=== PATIENT | female | born 1940 | race Caucasian/White ===

== ENCOUNTER 2024-03-19 05:56 | Day surgery (SDC) | payer OTHER, SELFPAY ==
[2024-02-25 08:07] VITALS: BMI 28.8
[2024-02-25 08:54] LABS: INR 1.25; PT 15.5 Sec (11.4-14.6)
[2024-02-25 08:59] LABS: % Basophils 0.7 % (0-2); % Immature Granulocytes 1.5 % (0-0.5); % Lymphocytes 24.2 % (20.5-51.1); % Monocytes 7.8 % (1.7-9.3); % Neutrophils 63.8 % (42.2-75.2); Absolute Basophils 0.1 10^3/uL (0-0.2); Absolute Eosinophils 0.1 10^3/uL (0-0.7); Absolute Immature Granulocytes 0.1 10^3/uL (0-0.05); Absolute Lymphocytes 1.7 10^3/uL (1.2-3.4); Absolute Monocytes 0.6 10^3/uL (0.1-0.6); Absolute Neutrophils 4.6 10^3/uL (1.4-6.5); Hematocrit 38.1 % (37.0-47.0); Hemoglobin 12.8 g/dL (12.0-16.0); Mean Corp Hgb Conc. 33.6 g/dL (33.0-37.0); Mean Corpuscular Hgb 31.8 pg (27.0-31.0); Mean Corpuscular Volume 94.5 fL (81.0-99.0); Mean Platelet Volume 10.5 fL (7.4-10.4); Nucleated Red Blood Cells % 0 %; Platelet Count 244 10^3/uL (130-400); Red Blood Cell Count 4.03 10^6/uL (4.20-5.40); Red Cell Dist. Width 13.3 % (11.5-14.5); White Blood Cell Count 7.2 10^3/uL (4.8-10.8)
[2024-02-25 09:01] LABS: ALT (SGPT) 12 U/L (0-35); AST (SGOT) 25 U/L (14-36); Albumin 3.9 g/dl (3.5-5.0); Alkaline Phosphatase 92 U/L (38-126); Blood Urea Nitrogen 26 mg/dl (7-17); Calcium 9.3 mg/dl (8.4-10.2); Carbon Dioxide 25 mmol/L (22-30); Chloride 106 mmol/L (98-107); Estimated Creatinine Clearance 41 ml/min; Glucose 76 mg/dl (70-99); Magnesium 1.8 mg/dl (1.6-2.3); Potassium 3.8 mmol/L (3.5-5.1); Sodium 138 mmol/L (135-145); Total Bilirubin 0.4 mg/dl (0.2-1.3); Total Protein 6.5 g/dl (6.3-8.2)
[2024-03-19] VITALS (17 sets, daily range): BP systolic 99–154; BP diastolic 53–101; BMI 29.7
--- NOTE | 2024-03-19 08:12 | ITS.CL.ABL ---
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
Ablation
Procedure Report:
ELECTROPHYSIOLOGIC STUDY AND POSSIBLE ABLATION
DATE: 03/19/24
Primary Care Provider: Dr Alexis Rao
Primary Life Consultant: Dr Soy Quezada
INDICATION:
Symptomatic Atrial Fibrillation.
Paroxysmal
HISTORY: See H and P.
Symptomatic AF, poorly controlled with attempted medical therapy
She is referred for electrophysiologic consultation from Dr. Soy Quezada regarding symptomatic paroxysmal atrial fibrillation.
Echocardiogram June 2023 with normal LVEF but moderate biatrial enlargement including left atrial size of 6.1 cm with moderate tricuspid regurgitation and mild pulmonary hypertension (Study obtained while in atrial fibrillation).
She describes highly symptomatic episodes of atrial fibrillation with heart racing sensation as well as shortness of breath.
She also describes that attempts at rate control with metoprolol has resulted in significant fatigue.
HAS-BLED: 1
Age
CHADSVASc: 3
HFpEF, NYHA class 2
Age
F Gender
AF
HISTORY: See H and P.
Symptomatic AF, poorly controlled with attempted medical therapy.
ANTICOAGULATION: Eliquis
'TIME-OUT': called and confirmed.
SEDATION/ANESTHESIA: provided via the anesthesia department using general anesthesia.
PROCEDURE:
Ultrasound Guidance performed by ca was utilized for femoral venous Vascular Access b/l.
A decapolar CS catheter was placed within the CS for mapping and pacing.
The intracardiac ultrasound catheter was positioned in the RA for continuous intracardiac ultrasound imaging.
Heparin bolus and infusion to target ACT at 300 -350 seconds was administered. Transseptal puncture was performed. This entailed advancing a sheath with dilator into the superior vena cava and withdrawing both (monitoring intracardiac ultrasound,
fluoroscopy and tip pressure) with the tip oriented toward the atrial septum. The fossa ovalis was engaged (indicated by sudden displacement of the sheath tip as well as tenting of the fossa seen on intracardiac ultrasound).
[employer] transseptal system was used. Left atrial catheter position was confirmed by echocardiographic imaging, pressure monitoring (LA mean pressure 12 mm Hg) and fluoroscopy. The sheath was advanced over the dilator and positioned in the left
atrium.
The multipolar mapping catheter was initially positioned through the transseptal sheath for high density mapping.
Geometry and voltage mapping was performed using the [email or web address] multipolar grid catheter. Navex was utilized for three-dimensional electroanatomical mapping.
A 3-D map was created using Navex. A 3-D reconstructed CT image was compared to the 3-D Navex map to assist in anatomic evaluation, mapping and ablation.
The [email or web address] Pulse Select PFA catheter and system was used for cardiac ablation. Catheter positioning was guided and confirmed using both I.C.E. and fluoroscopy.
PV isolation approach was used to electrically isolate each PV ostia (LSPV, LIPV, RSPV, RIPV). Additional energy applications/additional ablation set was required to accomplish wide area circumferential ablation around each of the pulmonary vein
sets and additionally ablation to accomplish LA posterior wall ablation.
Remapping with the Berman multipolar grid catheter found that all PVPs were eliminated at each vein demonstrating entrance block. Also pacing from the multipolar mapping catheter around the the circumference of the ostia was performed at 10 ma and
2.0 msec output to assess for exit block. This demonstrated electrical isolation at each of the pulmonary vein ostia (LSPV, LIPV, RSPV, RIPV). There is also entrance and exit block at the LA posterior wall.
Programmed electrostimulation failed to induce any sustained arrhythmias.
I.C.E. :
Pre-Ablation Post-Ablation
LVEF: 55 % 55 %
WMA: none none
Pericardial effusion: none none
COMPLICATIONS:
None
SUMMARY:
- Mapping and ablation to isolate the PVs
- Additional AF ablation set after PVI.
- 3-D Electroanatomical Mapping
- Intracardiac Ultrasound
Post ablation, I discussed today's findings and results with the patient's .
RECOMMENDATIONS:
- Observe in monitored bed.
- Maintain oral anticoagulation.
- Continue Toprol
- Continue cardiovascular care with Dr Soy Quezada
Copy to:
Dr Alexis Rao
Dr Soy Quezada
[2024-03-19 09:06] LABS: ACT-LR - POC 274 Seconds (116-155)
[2024-03-19 09:27] LABS: ACT-LR - POC 279 Seconds (116-155)
[2024-03-19 09:47] LABS: ACT-LR - POC 385 Seconds (116-155)
[2024-03-19] MEDS: ANESTHETIC LOZENGE 1 LOZENGE PO (10:43)
--- NOTE | 2024-03-19 14:44 | CM ---
Addendum entered by Aleshia Barnes RN 03/20/24 12:16:
Patient interested in PT. Referral sent to [facility]. Patient being discharged home with [facility]
Original Note:
Chart reviewed. Patient is independent of ADLS, lives her in a [address], 2 [facility], ambulates with a SPC and has a stairglide. Plan is for the patient to return home. CM to follow
[2024-03-19] MEDS: ZESTRIL 20 MG PO (16:14)
[2024-03-19] MEDS: ELIQUIS 5 MG PO (20:20)
--- NOTE | 2024-03-19 21:57 | PTCARENOTE ---
Pt received post ablation done via right femoral vein, figure of eight suture removed as ordered, no sign of bleeding or hematoma, all tenderness initially present resolved. Pt OOB with assistance. Pt states she has been very weak. Pt OOB with one
using walker. Pt identified as a fall risk, precautions in place, pt calling for assistance. Pt passing urine without difficulty. Telemetry shows sinus rhythm with occasional PAC's , heart rate up to 120's briefly with activity.
[2024-03-20] VITALS (8 sets, daily range): BP systolic 99–119; BP diastolic 47–68; PULSE 63; O2SAT 99
[2024-03-20] MEDS: SYNTHROID 75 MCG PO (05:12)
[2024-03-20 05:19] LABS: Hematocrit 31.1 % (37.0-47.0); Hemoglobin 10.6 g/dL (12.0-16.0); Mean Corp Hgb Conc. 34.1 g/dL (33.0-37.0); Mean Corpuscular Hgb 32.5 pg (27.0-31.0); Mean Corpuscular Volume 95.4 fL (81.0-99.0); Mean Platelet Volume 10.4 fL (7.4-10.4); Platelet Count 174 10^3/uL (130-400); Red Blood Cell Count 3.26 10^6/uL (4.20-5.40); Red Cell Dist. Width 13.7 % (11.5-14.5); White Blood Cell Count 7.8 10^3/uL (4.8-10.8)
[2024-03-20 05:43] LABS: Blood Urea Nitrogen 29 mg/dl (7-17); Calcium 8.4 mg/dl (8.4-10.2); Carbon Dioxide 23 mmol/L (22-30); Chloride 108 mmol/L (98-107); Estimated Creatinine Clearance 50 ml/min; Glucose 103 mg/dl (70-99); Magnesium 1.9 mg/dl (1.6-2.3); Potassium 4.5 mmol/L (3.5-5.1); Sodium 139 mmol/L (135-145); eGFR > 60.00
--- NOTE | 2024-03-20 07:47 | W.PN.CARDCBS ---
Addendum entered and electronically signed by Praveen Shore DO 03/20/24 10:12:
I saw and examined the patient.
The [facility] Manager's note was reviewed and I agree with the note.
Comment:
GENERAL: no acute distress
EYE: sclera anicteric
NECK: Supple, no JVD, no carotid bruit appreciated
ENT: normal nose, moist mucosal membranes
CARDIAC: Regular rate and rhythm, +S1/S2, no murmur, rubs, or gallops
CHEST/PULMONARY: Normal effort, clear breath sounds
ABDOMEN: Soft, without focal tenderness or distention
NEUROLOGICAL: Alert and oriented x3
SKIN: Warm and dry, no rash; right groin soft nontender, no swelling bandage in place.
PSYCH: Normal and appropriate interaction.
Patient did well post PVI/PWI with Dr. Olivas. Brief PAT noted on telemetry no sustained arrhythmias. Patient resume beta-callie today
Right groin stable
No complaints
Mild anemia, CBC pending for next week
Okay to resume Eliquis and monitor symptoms
Stable for DC
Original Note:
Today's Communication / Plan
-
resume eliquis
cbc in 1 week
home today
Impression / Plan
-
PCP: Alexis Rao MD
CDY: Soy Quezada DO
83 y/o, presents with symptomatic AF, poorly controlled with attempted medical therapy. Symptoms include heart racing, SOB. Metoprolol results in significant fatigue. [id number], maintained on Eliquis.
IMPRESSION:
Highy symptomatic AF
s/p PFA, 03/19/24
post op anemia
Chronic diastolic HFpEF, 55%
HTN
Hypothyroid
TOYA/CPAP
Crohn's
DVT w/IVC filter
PLAN:
Tele- NSR w/atrial bigemeny
right groin site stable
oob ambulating w/assist as before
resume eliquis
continue low dose toprol xl 12.5mg/daily
Hgb noted 10.6- down 2 gm from prior- will get outpt CBC in 1 week
followup w/Dr. Quezada arranged
home today
Progress Note - Podiatrist Assistant
Subjective
Date of Service: March 20, 2024
Denies cp/palps/dyspnea
oob ambulating
groin site without pain
Objective
Labs:
03/20/24 04:59
03/20/24 04:59
Labs
Hgb 10.6 g/dL (12.0-16.0) L 03/20/24 04:59
Hct 31.1 % (37.0-47.0) L 03/20/24 04:59
Plt Count 174 10^3/uL (130-400) 03/20/24 04:59
PT 15.5 Sec (11.4-14.6) H 02/25/24 08:16
INR 1.25 02/25/24 08:16
Sodium 139 mmol/L (135-145) 03/20/24 04:59
Potassium 4.5 mmol/L (3.5-5.1) 03/20/24 04:59
BUN 29 mg/dl (7-17) H 03/20/24 04:59
Creatinine 0.8 mg/dL (0.6-1.0) 03/20/24 04:59
Glucose 103 mg/dl (70-99) H 03/20/24 04:59
Vital Signs and I&O:
Vital Signs
Temp Pulse Resp BP Pulse Ox
97.6 F 64 20 119/56 95
03/20/24 07:39 03/20/24 04:46 03/20/24 07:39 03/20/24 04:46 03/20/24 07:39
Vital Signs
Temp Pulse Resp BP Pulse Ox
97.6 F 64 20 119/56 95
03/20/24 07:39 03/20/24 04:46 03/20/24 07:39 03/20/24 04:46 03/20/24 07:39
Intake & Output
03/18/24 03/19/24 03/20/24 03/21/24
06:59 06:59 06:59 06:59
Intake Total 480 / 480
Output Total 200 / 200
Balance 280 / 280
Physical Exam
Physical Exam
AAOx3, MAEE 5/5
RRR S1 S2 no murmurs
CTA bilat, non labored
soft abd, + bs
right groin site without ht/bleeding, non tender
bilat extremities w/palpable distal pulses, no edema
[2024-03-20] MEDS: ELIQUIS 5 MG PO (08:43)
[2024-03-20] MEDS: ZESTRIL PO (08:44)
[2024-03-20] MEDS: PREVNAR 20 0.5 ML IM (08:45)
--- NOTE | 2024-03-20 09:14 | W.DS.TRANS ---
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
-
Discharge Instructions:
Discharge Diagnosis/Procedures Afib post ablation
Diet Low Cholesterol
Driving Restrictions No driving for 24 hours
Blood Work BMP, CBC in 1 week- results to Dr. Quezada
Instructions:
Stand-Alone Forms: DC Instructions- Cath/EP Lab
Changes to Home Medications: No
Discharge Medications:
DC Medications w/original date entered in [employer]
calcium carbonate (Calcium 600) 600 mg PO BID 07/08/10
cholecalciferol (vitamin D3) 25 mcg (1,000 unit) tablet (Vitamin D3) 1,000 unit PO BID 07/08/10
apixaban 5 mg tablet (Eliquis) 5 mg PO BID #60 tabs 02/07/22
levothyroxine 75 mcg tablet 75 mcg PO DAILY 02/20/24
lisinopril 20 mg-hydrochlorothiazide 25 mg tablet 1 tab PO DAILY 02/20/24
metoprolol succinate 25 mg tablet,extended release 24 hr (Toprol XL) 12.5 mg PO DAILY 02/20/24
vitamin B complex 1 tab PO DAILY 02/20/24
zinc acetate 50 mg (zinc) capsule 50 mg PO DAILY 02/20/24
Home Medication Changes
Pending Results: No
[2024-03-20] MEDS: TOPROL XL 12.5 MG PO (09:22)
--- NOTE | 2024-03-20 14:15 | PTCARENOTE ---
Pt with SBP @ 100, Jo Ann Pang aware, lisinopril and HCTZ held this morning. Pt denied dizziness. Pt seen by PT, will have VN with home PT. Telemetry and IV device removed. Discharge instructions reviewed with pt and her regarding activity
and driving guidelines, wound care, medications and their possible side effects, reporting cares and concerns and follow up lab work and appointments. Good understanding verbalized. Pt escorted out via wheelchair and discharged to home.
== END 2024-03-20 14:05 | disposition home or self-care (01) ==
LOC: CATH 05:56
PROVIDERS: Nurse Practitioner Adult Health; ATTENDING PHYSICIAN Internal Medicine Cardiovascular Disease; FAMILY PHYSICIAN Internal Medicine
DX: I48.0 Paroxysmal atrial fibrillation (principal); Z79.899 Other long term (current) drug therapy; E03.9 Hypothyroidism, unspecified; K50.90 Crohn's disease, unspecified, without complications; R00.2 Palpitations; R55 Syncope and collapse; Z79.01 Long term (current) use of anticoagulants; I11.0 Hypertensive heart disease with heart failure; I50.32 Chronic diastolic (congestive) heart failure; Z87.891 Personal history of nicotine dependence; Z86.718 Personal history of other venous thrombosis and embolism; Z98.890 Other specified postprocedural states; G47.33 Obstructive sleep apnea (adult) (pediatric); R91.1 Solitary pulmonary nodule; Z90.49 Acquired absence of other specified parts of digestive tract; Z79.890 Hormone replacement therapy; Z88.2 Allergy status to sulfonamides; D64.89 Other specified anemias
CPT/HCPCS: C1732; C1894; C1733; C1769; C1730; C1892; 36415; 75572; 80048; 80053; 83735; 85025; 85027; 85347; 85610; 86850; 86900; 86901; 90677; 93005; 93656; 93657; 97116; 97162; G0009; Q9967

== ENCOUNTER → 2024-06-09 07:02 | Outpatient (REF) | payer OTHER, SELFPAY | LOC: RAD 07:02 | PROVIDERS: ATTENDING PHYSICIAN Internal Medicine; REFERRING PHYSICIAN Surgery Vascular Surgery | DX: R60.0 Localized edema (principal) | CPT/HCPCS: 93923 ==

== ENCOUNTER 2024-10-13 10:04 | Emergency (ER) | payer OTHER, SELFPAY ==
[2024-10-13 10:09] VITALS: BP 147/77
--- NOTE | 2024-10-13 10:58 | ED.GENMED ---
History of Present Illness
General
Chief Complaint: Extremity Pain (non-traumatic)
Source: patient
Exam Limitations: none
Time Seen by Provider: 10/13/24 10:47
Nursing documentation reviewed up to this point in time: agreed with
History of Present Illness
History of Present Illness:
Patient is an 84-year-old female with past medical history of A-fib, ablation 03/31, chronic diastolic heart failure, cardiomegaly DVT hypertension Groves filter, Crohn's disease diverticulitis, hypertension presents to the ER for evaluation.
Patient reports he started with pain behind her right knee 4 days ago. She denies any injury. She reports this morning she can hardly put weight on it because of pain. She denies any injury. Denies any fever chills redness to the area. She has
a Groves filter but was told by a vein specialist that it may not be working. She is however on Eliquis and has not skipped a dose.
She denies any chest pain shortness of breath.
Past History
Past History
ED Past Medical History: Arrthythmia (Paroxysmal atrial fibrillation), HTN and Other (Ulcerative colitis)
ED Past Surgical History: Cholecystectomy, Tonsilectomy and Other (Bowel resection)
Social History
Tobacco: Non-smoker
Personal:
Living: with family
Employment: Retired
Family History
Family History: Negative Early CAD
Review of Systems
Review of Systems
Allergies reviewed?: Yes
All Other Systems: ROS reviewed and negative except as documented in HPI and ROS
Constitutional: Reports no symptoms; Denies fever or chills
Musculoskeletal: Reports other (right knee pain )
Skin: Reports no symptoms
Neurological: Reports no symptoms
Psychiatric: Reports no symptoms
Phy Exam
General Physical Exam
General Presentation: no apparent distress
General age: appears stated age
General Skin: warm and dry
General Habitus: elderly
General Mental: alert
General Hydration: appears well hydrated
Neurological Exam
Neurological Exam: alert and oriented x3
Musculoskeletal Exam
Musculoskeletal Exam: other (rle with strong pulses + knee appears swollen without any redness. Patient does however have good flexion though reports knee feels mildly tight. She has strong distal pulses no calf tenderness, no swelling to calf.)
Skin Exam
Skin Exam: normal color and warm/dry
Psychiatric Exam
Psychiatric Exam: normal mood/affect
Course
Orders/Labs/Results
Orders:
Orders
10/13/24 10:16
US Periph Venous LOWER Ext RT Urgent
Comment:
Reason For Exam: pain
10/13/24 11:57
Knee, Right 4 or More Views [CR Knee- Right 4 Or More View*] Urgent
Comment:
Reason For Exam: pain
10/13/24 11:58
Acetaminophen [Tylenol] 650 mg PO NOW STA
Vital Signs
Initial and Last Documented VS:
Initial Vital Signs
Temp Pulse Resp BP Pulse Ox
97.9 F 69 18 147/77 98
10/13/24 10:09 10/13/24 10:09 10/13/24 10:09 10/13/24 10:09 10/13/24 10:09
Last Documented Vital Signs
Temp Pulse Resp BP Pulse Ox
97.3 F 60 20 122/49 94
10/13/24 13:53 10/13/24 13:53 10/13/24 13:53 10/13/24 13:53 10/13/24 13:53
MDM/Problems Addressed
MDM/Problems Addressed:
Patient is a 84-year-old female who complains of knee pain. Patient started several days ago with discomfort to the right posterior knee though she denies any injury. On exam there is swelling however no erythema or evidence of infection. She
does have good range of motion and then has some discomfort she is able to flex and extend it well. It is documented in the triage note she has been having trouble with blood clots. She has not had blood clot in years and has a filter in place
though her vascular vein doctor was concerned it was possibly blocked but she is on Eliquis and has not skipped a dose. Her leg is not swollen her ultrasound is negative. X-ray shows prominent arthritis I do feel that this is likely causing
patient's pain she did have improvement with Tylenol and was able to bear weight with her cane and an Jose F wrap. Discussed close outpatient follow with orthopedics.
*Radiology
Radiology exam reviewed: radiology read reviewed
*Pulse Oximetry
Patient hypoxic: no
*Critical Care Note
Total Time (30-74mins, 75-104mins- exclusive of procedures): Not Applicable
ED Attending Note
-
Portions of this chart may have been created with voice recognition software.� Occasional wrong word or��sound alike� substitutions may have occurred due to the inherent limitations of voice recognition software.
Discharge Plan
Departure
Patient Disposition: Home (Routine Discharge)
Date of Disposition: 10/13/24
Time of Disposition: 13:31
Patient with high blood pressure during this ER visit?: Yes
Condition: Fair
Covid-19: Not Applicable
Discharge Problem:
knee pain
Instructions: Muscle and Bone Pain (DC), Knee pain - ED discharge instructions, BLOOD PRESSURE
Prescriptions:
No Action
calcium carbonate [Calcium 600] 600 mg calcium (1,500 mg) Tablet
600 mg PO BID
cholecalciferol (vitamin D3) [Vitamin D3] 1,000 UNIT tablet
1,000 unit PO BID
Eliquis 5 mg tablet
5 mg PO BID Qty: 60 11RF
zinc acetate 50 mg (zinc) Capsule
50 mg PO DAILY
levothyroxine 75 mcg Tablet
75 mcg PO DAILY
lisinopril-hydrochlorothiazide 20-25 mg Tablet
1 tab PO DAILY
vitamin B complex Tablet
1 tab PO DAILY
metoprolol succinate [Toprol XL] 25 mg tablet extended release 24 hr
12.5 mg PO DAILY
Referrals:
Dinesh Tellez MD [Active] -
Alexis Rao MD [Family Provider] -
Activity Restrictions/Additional Instructions:
As discussed wear Jose F wrap for support with ambulation but remove at night while sleeping. You may keep elevate is much as possible and trying ice. You may take Tylenol for pain. Follow-up with orthopedics in the next several days and return if
any worsening of symptoms.
Interventions
Interventions:
*Risk Screen - Suicide Last Done: 10/13/24 10:09
*General Assessment Last Done: 10/13/24 11:08
*Neglect/Abuse Screening Last Done: 10/13/24 11:08
*ED- Fall Risk Assessment Last Done: 10/13/24 11:56
*ED COVID-19 Vaccine History Last Done: 10/13/24 11:08
*Nursing Disposition Last Done: 10/13/24 13:53
ED-Skin Assessment Last Done: 10/13/24 11:08
ED-Peripheral Vascular Assessment Last Done: 10/13/24 11:08
ED-Musculoskeletal Assessment Last Done: 10/13/24 11:08
Discharge Date and Time
Discharge Date/Time: 10/13/24 14:08
Print Language: INDONESIAN
[2024-10-13 11:10] VITALS: BP 152/69
[2024-10-13 11:56] VITALS: BMI 29.1
[2024-10-13] MEDS: TYLENOL 650 MG PO (12:14)
[2024-10-13 13:53] VITALS: BP 122/49
== END 2024-10-13 14:08 | disposition home or self-care (01) ==
LOC: EMR 10:04
PROVIDERS: EMERGENCY PHYSICIAN Emergency Medicine; FAMILY PHYSICIAN Internal Medicine
DX: M25.561 Pain in right knee (principal); I10 Essential (primary) hypertension; I48.0 Paroxysmal atrial fibrillation; Z79.01 Long term (current) use of anticoagulants
CPT/HCPCS: 99285; 73564; 93971